=== PATIENT | female | born 1960 | race Caucasian/White ===

== ENCOUNTER → 2016-11-04 | Outpatient (CLI) | payer OTHER ==
--- NOTE | 2016-11-04 13:42 | MAMMOGRAPHY REPORT ---
ULTRASOUND OF RIGHT BREAST: 11/04/2016 CLINICAL HISTORY: History of right breast cancer status post post bilateral mastectomies with silicon e implant reconstruction. The patient reports a palpable lump in her right reconstructed breast, whi ch she believes may be the same lump that was evaluated September 2015 at an outside institution. She r eports that it may be slightly larger but she is unsure. She had a palpable lump in the left breast September 2015, which was surgically biopsied and yielded scar tissue. COMPARISON: Comparison is made to exams dated: 12/24/2014 ultrasound biopsy, 12/24/2014 mammogram, 10/22 ultrasound, 11/12/2014 mammogram, 10/31/2014 mammogram, and 10/30/2013 mammogram - [facility]. Outside breast ultrasound from [facility] dated 10/16/2015. TECHNIQUE: Real-time targeted ultrasound of the right breast was performed. FINDINGS: Real-time, high resolution targeted ultrasound was performed of the area of the palpable l ump pointed out by the patient, in the right breast at approximately 8:30, 4 cm from the nipple (with arm raised over her head). At the site of the palpable lump there is an oval hypoechoic circumscrib ed 7 x 2 x 5 mm mass, which is located immediately superficial to her breast implant. No internal va scularity is evident. This appears somewhat similar to a palpable mass which was seen in the left br east on the outside September 2015 ultrasound exam, which was reportedly excised and yielded scar tissue per the patient. The mass is probably benign and may represent postsurgical changes including scar tissue and/or fat necrosis. Recommend follow-up ultrasound in 6 months to confirm stability. IMPRESSION: ACR-BI-RADS CATEGORY 3: PROBABLY BENIGN - FOLLOW-UP RECOMMENDED Hypoechoic circumscribed 7 mm mass at the site of the palpable lump in the right breast at approximat andrea 8:30. This appears similar to a palpable hypoechoic mass seen within the left breast on the outs loretta September 2015 ultrasound exam, which was reportedly surgically excised and yielded scar tissue. Th e finding is probably benign and likely represents postsurgical changes including scar tissue and/or fat necrosis. Recommend follow-up ultrasound of the right breast in 6 months to confirm stability. Also recommend clinical follow-up, and if the lump clinically increases in size the patient should re turn sooner for repeat ultrasound. The patient was verbally notified of the results. Dunia Luke M.D. ah/:11/04/2016 09:24:33 Doctor Of Podiatry: Dunia Luke MD, [facility] letter sent: Follow Up Recommended 3 BI-RADS Code: ACR-BI-RADS Category 3: Probably Benign
== END | disposition home or self-care (01) ==
LOC: C.MAMM 08:39
PROVIDERS: ATTEND Family Medicine
DX: R92.8 Other abnormal and inconclusive findings on diagnostic imaging of breast (principal); N63 Unspecified lump in breast

== ENCOUNTER → 2017-05-05 | Outpatient (CLI) | payer OTHER ==
--- NOTE | 2017-05-05 13:55 | MAMMOGRAPHY REPORT ---
ULTRASOUND OF RIGHT BREAST: 05/05/2017 CLINICAL HISTORY: History of right breast cancer status post bilateral mastectomies with silicone imp lant reconstruction. The patient presents for short interval follow-up of a palpable lump in her rig ht reconstructed breast. Clinically she does not think the lump has changed in size since she was la st seen. She also had a palpable lump in the left breast September 2015 which was surgically biopsied a t an outside institution and yielded scar tissue. COMPARISON: Comparison is made to exams dated: 11/04/2016 ultrasound, 12/24/2014 ultrasound biopsy, mammogram, 11/12/2014 ultrasound, 11/12/2014 mammogram, and 10/31/2014 mammogram - [facility]. TECHNIQUE: Real-time targeted ultrasound of the right breast was performed. FINDINGS: Real-time, high-resolution targeted ultrasound was performed of the area of the palpable aftab mp pointed out by the patient, in the right breast at approximately 8:30, 4 cm from the nipple (with her arm raised over her head). Again noted at the site of the palpable lump is an oval parallel circ umscribed hypoechoic mass immediately superficial to her breast implant which measures 4 x 7 x 2 mm. The mass is stable in size and appearance compared to the March 2016 exam and is probably benign given the morphology and stability. Additionally, this appears similar to a palpable mass which was seen in the left breast on the outside September 2015 exam which was reportedly excised and yielded scar tissue per the patient. IMPRESSION: ACR-BI-RADS CATEGORY 3: PROBABLY BENIGN - FOLLOW-UP RECOMMENDED Circumscribed benign-appearing 7 mm mass at the site of the palpable lump in the right reconstructed breast at approximately 8:30. The mass is stable in size and appearance compared to the November 09 exam and is probably benign and likely represents postsurgical changes. Recommend another short i nterval follow-up targeted ultrasound of the right breast in 6 months to confirm longer stability. A dditionally, recommend continued clinical follow-up and if the lump clinically increases in size the patient should return sooner for repeat ultrasound. The patient was verbally notified of the results. Dunia Luke M.D. /:05/05/2017 11:15:41 Art Instructor: Dunia Luke MD, [facility] letter sent: Follow Up Recommended 3 BI-RADS Code: ACR-BI-RADS Category 3: Probably Benign
== END | disposition home or self-care (01) ==
LOC: C.MAMM 10:55
PROVIDERS: ATTEND Family Medicine
DX: N63.13 Unspecified lump in the right breast, lower outer quadrant (principal); Z85.3 Personal history of malignant neoplasm of breast; Z08 Encounter for follow-up examination after completed treatment for malignant neoplasm; Z90.13 Acquired absence of bilateral breasts and nipples